=== PATIENT | female | born 1955 | race Caucasian/White ===

== ENCOUNTER 2017-02-01 18:00 | Emergency (ER) | payer OTHER ==
[2017-02-01 18:11] VITALS: BP 143/79
[2017-02-01] MEDS ORDERED: Ipratropium 0.5MG/2.5ML NEB* 0.5 MG/2.5 ML NEB.SOLN INH ONE (18:19)
[2017-02-01] MEDS ORDERED: Albuterol 2.5 MG/3 ML NEB.SOL* (0.083%) INH ONE ×2 (18:19→19:18)
--- NOTE | 2017-02-01 18:56 | UC ---
Shortness of Breath HPI - HPI Summary HPI Summary: 61 yo female with right sided cp x 3 days worsening dyspnea out of her respiratory meds on 2 liters o2 at home no fever has had chills and fatigue - History of Current Complaint Chief Complaint: UCChestPain Stated Complaint: CHEST PAIN, AND SHORTNESS OF BREATH Time Seen by Provider: 02/01/17 18:06 Hx Obtained From: Patient Onset/Duration: Gradual Onset, Lasting Days Timing: Constant Current Severity: Moderate Dyspnea At: Rest Aggrevating Factors: Deep Breaths Associated Signs & Symptoms: Positive: Cough (Productive), Wheezing, Chest Pain Unrelated to Cough, Diaphoresis - Allergy/Home Medications Allergies/Adverse Reactions: Allergies Allergy/AdvReac Type Severity Reaction Status Date / Time Penicillins Allergy Intermediate Hives Verified 02/01/17 18:14 PMH/Surg Hx/FS Hx/Imm Hx Previously Healthy: Yes Respiratory History: COPD, Bronchitis, Pneumonia - Surgical History Surgical History: Yes Surgery Procedure, Year, and Place: HYSTERECTOMY-1985, hernia 08/24 - Family History Known Family History: Positive: Cardiac Disease, Hypertension, Diabetes - Social History Alcohol Use: None Substance Use Type: None Smoking Status (MU): Light Every Day Tobacco Smoker Type: Cigarettes Amount Used/How Often: less than 1/2 daily - Immunization History Most Recent Influenza Vaccination: 04/24 Most Recent Tetanus Shot: unk Most Recent Pneumonia Vaccination: 08/2003 Review of Systems Constitutional: Negative Skin: Negative Eyes: Negative ENT: Negative Respiratory: Shortness Of Breath, Cough Cardiovascular: Chest Pain Gastrointestinal: Negative Genitourinary: Negative Motor: Negative Neurovascular: Negative Musculoskeletal: Negative Neurological: Negative Psychological: Negative All Other Systems Reviewed And Are Negative: Yes Physical Exam Triage Information Reviewed: Yes Appearance: Well-Appearing, No Pain Distress, Well-Nourished Vital Signs: Initial Vital Signs Temp 99.2 F 02/01/17 18:08 Pulse 71 02/01/17 18:08 Resp 26 02/01/17 18:08 BP 143/79 02/01/17 18:08 Pulse Ox 92 02/01/17 18:08 Vital Signs Reviewed: Yes Eyes: Positive: Conjunctiva Clear ENT: Positive: Hearing grossly normal. Negative: Nasal congestion, Nasal drainage, Trismus, Muffled/hoarse voice Neck: Positive: Supple, Nontender Respiratory: Positive: Respiratory distress - mild, Accessory muscle use, Wheezing. Negative: Chest non-tender - right sided chest wall pain Cardiovascular: Positive: RRR, No Murmur, Pulses Normal Musculoskeletal: Positive: ROM Intact, No Edema Neurological: Positive: Alert Psychological Exam: Normal Skin Exam: Normal Diagnostics - EKG Cardiac Rate: NL Cardiac Rhythm: Sinus: Normal Ectopy: None ST Segment: Normal Re-Evaluation - Re-Evaluation First Eval Change: Improved - breathing better/feels at her baseline Shortness of Breath Dx - Differential Dx/Diagnosis Provider Diagnoses: acute bronchitis with bronchospasm. pleuresy Discharge - Discharge Plan Condition: Stable Disposition: HOME Prescriptions: Albuterol 2.5MG/3ML (0.083%)* [Ventolin 2.5 MG/3 ML NEB.BRO*] 2.5 mg INH QID PRN #1 neb.bro PRN Reason: Wheezing Clarithromycin TAB* [Biaxin 500 MG TAB*] 500 mg PO BID #14 tab Prednisone [Deltasone] 40 mg PO DAILY #10 tab Patient Education Materials: Pleurisy (ED), Acute Bronchitis (ED) Referrals: Omkar Mora MD [Primary Care Provider] - 2 Days Additional Instructions: to ER for new or worsening symptoms
--- NOTE | 2017-02-01 19:06 | RAD ---
INDICATION: Right-sided chest pain. COMPARISON: Comparison is made with prior chest x-ray studies from October 05, 2006 and July 19, 2015. TECHNIQUE: Dual-energy PA and lateral views of the chest were obtained. FINDINGS: The heart is within normal limits in size. Mediastinal and hilar contours appear within normal limits. The lungs are hyperinflated. There is a nodule present in the mid lateral aspect of the right lung measuring 1.5 cm in size which is unchanged from the prior studies. There is mild diffuse prominence of the interstitial markings which appear unchanged. No focal infiltrate or pleural effusion is seen. IMPRESSION: 1. FINDINGS CONSISTENT WITH COPD AND CHRONIC INTERSTITIAL CHANGE, NO EVIDENCE FOR ACUTE FINDING. 2. STABLE RIGHT LUNG PULMONARY NODULE.
[2017-02-01] MEDS ORDERED: predniSONE TAB* 20 MG PO ONE (19:18)
[2017-02-01] MEDS ORDERED: Clarithromycin TAB* 250 MG PO ONE (19:19)
== END 2017-02-01 19:39 | disposition home or self-care (01) ==
LOC: UCEAST 18:00
DX: J20.9 Acute bronchitis, unspecified (principal); R09.1 Pleurisy; Z88.0 Allergy status to penicillin; Z90.710 Acquired absence of both cervix and uterus; F17.210 Nicotine dependence, cigarettes, uncomplicated
CPT/HCPCS: 71020; 93005; 99213; A9270-GY; G0463; J7512; J7644